=== PATIENT | male | born 1995 | race Caucasian/White ===

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

== ENCOUNTER 2018-03-05 11:24 | Emergency (ER) | payer OTHER ==
[~2018-03-05] VITALS: Ht 167.6 cm; Wt 63.7 kg
[~2018-03-05 11:24] MED LIST changes: -AMO500 PO; +AMOX500C2 PO; +BACTDS PO; +CEPH-443 PO; +IBUP-1982; -IBUP200C
[2018-03-05 11:26] VITALS: Ht 167.6 cm; Wt 63.7 kg
[2018-03-05] MEDS ORDERED: CEFTRIAXONE 1 GM INJ IM ONE (16:00)
[2018-03-05] MEDS ORDERED: CEPH-443 PO (16:01)
[2018-03-05] MEDS ORDERED: IBUP-1542 PO (16:01)
[2018-03-05] MEDS ORDERED: SULF1TAB31 PO (16:01)
--- NOTE | 2018-03-05 16:24 | ERD ---
ER Documentation Chief Complaint Chief Complaint Complains of left leg / foot pain x 2 days HPI 22-year-old male complaining of left leg pain since this morning. Patient reports waking up with the pain in his left calf and left hamstring area. Able to ambulate, but with slight pain. Patient states that he had a 8-9-hour long drive yesterday. He did stop to 3 times, with 10 minutes break each time. Patient denies any trauma to his legs. Denies shortness of breath. Denies smoking. Denies any past medical history. ROS All systems reviewed and are negative except as per history of present illness. Medications Home Meds Active Scripts Ibuprofen* (Motrin*) 600 Mg Tab, 600 MG PO Q6H PRN for PAIN AND OR ELEVATED TEMP, #30 TAB Prov:JESUS MCKOY. CORN DETASSELER 03/05/18 Sulfamethoxazole/Trimethoprim* (Bactrim Ds* Tablet) 1 Each Tablet, 1 TAB PO BID, #14 TAB Prov:JESUS MCKOY. CORN DETASSELER 03/05/18 Cephalexin* (Keflex*) 500 Mg Capsule, 500 MG PO QID for 7 Days, CAP Prov:JESUS MCKOY. CORN DETASSELER 03/05/18 Sulfamethoxazole-Trimethoprim* (Bactrim* DS) 800-160 Mg Tab, 1 TAB PO BID for 10 Days, #20 TAB Prov:ERICA JIMENEZ PA-C 04/19/16 Cephalexin* (Keflex*) 500 Mg Capsule, 500 MG PO QID for 10 Days, CAP Prov:ERICA JIMENEZ PA-C 04/19/16 Ibuprofen* (Motrin*) 600 Mg Tab, 600 MG PO Q6, #30 TAB Prov:BRIGID JIMENEZILLE PA-C 04/19/16 Ibuprofen* (Motrin*) 600 Mg Tab, 600 MG PO Q8, #30 TAB Prov:MANAGUELOD,ABDI P CORN DETASSELER 09/26/15 Amoxicillin* (Amoxicillin*) 500 Mg Cap, 500 MG PO TID for 7 Days, CAP Prov:MANAGUELOD,ABDI P CORN DETASSELER 09/26/15 Reported Medications Ibuprofen* (Ibuprofen*) 200 Mg Capsule 09/27/09 Allergies Allergies: Coded Allergies: No Known Drug Allergies (Verified Allergy, Mild, 03/05/18) PMhx/Soc History of Surgery: Yes (APPendectomy ) Anesthesia Reaction: No Hx Neurological Disorder: No Hx Respiratory Disorders: No Hx Cardiac Disorders: No Hx Psychiatric Problems: No Hx Miscellaneous Medical Probl: No Hx Alcohol Use: No Hx Substance Use: Yes (OCCASIONAL MARIJUANA) Hx Tobacco Use: No Smoking Status: Never smoker Physical Exam Vitals Vital Signs Date Temp Pulse Resp B/P (MAP) Pulse Ox O2 O2 Flow FiO2 Time Delivery Rate 03/05/18 98.8 80 18 116/67 99 Room Air 14:17 (83) 03/05/18 100.1 13:37 03/05/18 100.9 92 20 130/72 100 11:26 (91) Physical Exam General: Well-developed, well-nourished, conscious and coherent, in no distress Skin: Warm and dry without rash, good texture and turgor Head: Normocephalic without evidence of trauma Chest: Normal AP diameter. Good expansion without retractions. Nontender. Lungs are clear to auscultate bilaterally with good tidal volume Heart: Regular rate and rhythm. No murmur, rub, or gallops heard Extremities: A 1 cm size healing scab noted on the medial left calf, with a 3-4 cm skin erythema proximal to the scalp. Left calf is tender to palpation. Tenderness also noted in the posterior left knee, and posterior left thigh. Full range of motion. Good strength bilaterally. No ecchymosis or edema. Peripheral pulses are intact. Sensation intact Neuro: Alert and oriented 4, GCS 15. Psych: Normal mood and affect Result Diagram: 03/05/18 1438 03/05/18 1438 Results 24 hrs Laboratory Tests Test 03/05/18 14:38 White Blood Count 9.6 10^3/ul Red Blood Count 5.26 10^6/ul Hemoglobin 15.9 g/dl Hematocrit 46.2 % Mean Corpuscular Volume 87.8 fl Mean Corpuscular Hemoglobin 30.2 pg Mean Corpuscular Hemoglobin Concent 34.4 g/dl Red Cell Distribution Width 12.3 % Platelet Count 179 10^3/UL Mean Platelet Volume 10.4 fl Immature Granulocytes % 0.400 % Neutrophils % 82.7 % Lymphocytes % 7.5 % Monocytes % 9.0 % Eosinophils % 0.1 % Basophils % 0.3 % Nucleated Red Blood Cells % 0.0 /100WBC Immature Granulocytes # 0.040 10^3/ul Neutrophils # 7.9 10^3/ul Lymphocytes # 0.7 10^3/ul Monocytes # 0.9 10^3/ul Eosinophils # 0.0 10^3/ul Basophils # 0.0 10^3/ul Nucleated Red Blood Cells # 0.0 10^3/ul D-Dimer < 220.00 ng/ml D-Dimer Comment Sodium Level 136 mmol/L Potassium Level 4.3 mmol/L Chloride Level 100 mmol/L Carbon Dioxide Level 25 mmol/L Anion Gap 11 Blood Urea Nitrogen 12 mg/dl Creatinine 0.78 mg/dl Est Glomerular Filtrat Rate mL/min > 60 mL/min Glucose Level 114 mg/dl Calcium Level 9.9 mg/dl Total Bilirubin 0.7 mg/dl Direct Bilirubin 0.00 mg/dl Indirect Bilirubin 0.7 mg/dl Aspartate Amino Transf (AST/SGOT) 25 IU/L Alanine Aminotransferase (ALT/SGPT) 22 IU/L Alkaline Phosphatase 61 IU/L Total Protein 8.1 g/dl Albumin 4.9 g/dl Globulin 3.20 g/dl Albumin/Globulin Ratio 1.53 Current Medications Medications Dose Sig/Tamar Start Time Status Last (Trade) Ordered Route PRN Stop Time Admin Dose Reason Admin Ceftriaxone 1 gm ONCE ONCE 03/05/18 DC 03/05/18 Sodium IM 16:00 16:07 (Rocephin) 03/05/18 16:01 Procedures/MDM Well-appearing 22-year-old male presents the ED with left leg pain since this morning. Because of his prolonged sitting yesterday from his long drive. Doppler ultrasound of the left lower extremity was obtained to rule out DVT. Doppler ultrasound is negative for DVT. After the ultrasound, patient reports feeling lightheaded and short of breath. He also reports slight chest pain. EKG, CBC, CMP, and d-dimer was obtained. CBC: no e/o of systemic infection or severe anemia CMP: no e/o severe acidosis, alkalosis, renal failure, diabetic ketoacidosis, liver disease D-dimer: Negative EKG: Rate/Rhythm: Normal Sinus Rhythm, rate 77 bpm QRS, ST, T-waves: No changes consistent w/ acute ischemia [place]: Right axis Impression: No evidence of ischemia or arrhythmia After resting for some time, patient reports feeling much better. Patient has low risk factors for pulmonary embolism, with d-dimer negative. I doubt that he has PE. I suspect that his shortness of breath and chest pain may be due to anxiety, which resolved after resting become more calm. As for his leg pain, the area of erythema proximal to the scalp make me suspicious for possible cellulitis. There is no sign of sepsis or necrotizing fasciitis. Patient given Rocephin IM in the ED. Bactrim DS and Keflex also prescribed for patient. Patient advised to return to ED in 2 days for recheck. Patient appears well, stable for discharge and outpatient management. Medical decision making shared with patient and family. Education provided to patient and family. Patient and family expressed understanding of the plan. Medications on discharge: Ibuprofen, Bactrim DS, Keflex. Follow-up: Primary care provider in 2-3 days or return to ED if worse. Disclaimer: Inadvertent spelling and grammatical errors are likely due to EHR/dictation software use and do not reflect on the overall quality of patient care. Also, please note that the electronic time recorded on this note does not necessarily reflect the actual time of the patient encounter. Departure Diagnosis: Primary Impression: Left leg pain Additional Impression: Cellulitis Site of cellulitis: extremity Site of cellulitis of extremity: lower extremity Laterality: left Qualified Codes: L03.116 - Cellulitis of left lower limb Condition: Stable Patient Instructions: Cellulitis Additional Instructions: Return to this facility in 2 DAYS for a follow-up exam.Return sooner if your condition worsens. JESUS MCKOY NP Mar 05, 2018 16:20
[2018-03-05 16:27] VITALS: BP 100/65; PULSE 81; RESP 18
== END 2018-03-05 16:28 | disposition home or self-care (01) ==
LOC: FTE 11:24
DX: M79.605 Pain in left leg (principal); L03.116 Cellulitis of left lower limb; R40.2412 Glasgow coma scale score 13-15, at arrival to emergency department
CPT/HCPCS: 80053; 85025; 85378; 93005; 93971; 96372; J0696; Z7502

== ENCOUNTER 2018-03-06 22:37 | Emergency (ER) | payer OTHER ==
[~2018-03-06] VITALS: Ht 172.7 cm; Wt 63.0 kg
[~2018-03-06 22:37] MED LIST changes: +SULF1TAB31 PO
[2018-03-06 22:48] VITALS: BP 124/67; PULSE 83; RESP 16; Ht 172.7 cm; Wt 63.0 kg
[2018-03-07] MEDS ORDERED: CLIN300C10 PO (00:26)
[2018-03-07] MEDS ORDERED: CLINDAMYCIN 600 MG INJ IM ONE (00:30)
[2018-03-07] MEDS ORDERED: CLINDAMYCIN 900 MG INJ IM ONE ×2 (01:00)
--- NOTE | 2018-03-07 07:30 | ERD ---
ER Documentation Chief Complaint Chief Complaint LEFT LOWER LEG REDNESS WITH ULCERATION/RADIAITING PAIN HPI 22-year-old male presents for left lower leg erythema with ulceration. Patient was in the ER here yesterday for the same symptoms and was given antibiotics Bactrim and Keflex however he states that the red area appears to be spreading upwards to his left thigh. Denies fevers or chills. Denies chest pain or shortness of breath. No other complaints. ROS All systems reviewed and are negative except as per history of present illness. Medications Home Meds Active Scripts Clindamycin Hcl* (Clindamycin Hcl*) 300 Mg Capsule, 300 MG PO QID for skin infection for 7 Days, #28 CAP Prov:CHARLINE RAMON DO 03/07/18 Ibuprofen* (Motrin*) 600 Mg Tab, 600 MG PO Q6H PRN for PAIN AND OR ELEVATED TEMP, #30 TAB Prov:JESUS MCKOY. DRIER OPERATOR HELPER 03/05/18 Sulfamethoxazole/Trimethoprim* (Bactrim Ds* Tablet) 1 Each Tablet, 1 TAB PO BID, #14 TAB Prov:JESUS MCKOY. DRIER OPERATOR HELPER 03/05/18 Cephalexin* (Keflex*) 500 Mg Capsule, 500 MG PO QID for 7 Days, CAP Prov:JESUS MCKOY. DRIER OPERATOR HELPER 03/05/18 Sulfamethoxazole-Trimethoprim* (Bactrim* DS) 800-160 Mg Tab, 1 TAB PO BID for 10 Days, #20 TAB Prov:ERICA JIMENEZ PA-C 04/19/16 Cephalexin* (Keflex*) 500 Mg Capsule, 500 MG PO QID for 10 Days, CAP Prov:BRIGID JIMENEZILLE PA-C 04/19/16 Ibuprofen* (Motrin*) 600 Mg Tab, 600 MG PO Q6, #30 TAB Prov:BARBARAMATTSSILLE PA-C 04/19/16 Ibuprofen* (Motrin*) 600 Mg Tab, 600 MG PO Q8, #30 TAB Prov:MANAGUELOD,ABDI P DRIER OPERATOR HELPER 09/26/15 Amoxicillin* (Amoxicillin*) 500 Mg Cap, 500 MG PO TID for 7 Days, CAP Prov:MANAGUELOD,ABDI P DRIER OPERATOR HELPER 09/26/15 Reported Medications Ibuprofen* (Ibuprofen*) 200 Mg Capsule 09/27/09 Allergies Allergies: Coded Allergies: No Known Drug Allergies (Verified Allergy, Mild, 03/05/18) PMhx/Soc History of Surgery: Yes (APPendectomy ) Anesthesia Reaction: No Hx Neurological Disorder: No Hx Respiratory Disorders: No Hx Cardiac Disorders: No Hx Psychiatric Problems: No Hx Miscellaneous Medical Probl: No Hx Alcohol Use: No Hx Substance Use: Yes (OCCASIONAL MARIJUANA) Hx Tobacco Use: No Physical Exam Vitals Vital Signs Date Temp Pulse Resp B/P (MAP) Pulse Ox O2 O2 Flow FiO2 Time Delivery Rate 03/06/18 97.3 83 16 124/67 98 22:48 (86) Physical Exam Const: No acute distress Resp: Clear to auscultation bilaterally Cardio: Regular rate and rhythm, no murmurs Abd: Soft, non tender, non distended. Normal bowel sounds Skin: Left calf ulceration about 3 cm with an erythematous streak to his left thigh. Back: No midline or flank tenderness Ext: No cyanosis, or edema, bilateral upper and lower extremity muscle strength 5 out of 5 Neur: Awake and alert, bilateral upper and lower extremity sensation intact Psych: Normal Mood and Affect Results 24 hrs Current Medications Medications Dose Sig/Tamar Start Time Status Last (Trade) Ordered Route PRN Stop Time Admin Dose Reason Admin Clindamycin 600 mg ONCE ONCE 03/07/18 Cancel Phosphate IM 00:30 (Cleocin) 03/07/18 00:31 Clindamycin 600 mg ONCE ONCE 03/07/18 Cancel Phosphate IM 01:00 (Cleocin) 03/07/18 01:01 Clindamycin 600 mg ONCE ONCE 03/07/18 DC 03/07/18 Phosphate IM 01:00 00:48 (Cleocin) 03/07/18 01:01 Procedures/MDM Medical Decision Making: Differential diagnosis includes but not limited to cellulitis, lymphangitis, contact dermatitis Patient appeared well on physical exam. Left calf examination shows a 3 cm ulceration with an erythematous streak running upwards to the patient's thigh. Physical examination most consistent with a cellulitis with associated lymphangitis. Patient had already been given Keflex and Bactrim on the previous visit to ER. Patient was given a shot of Cleocin. Patient advised to discontinue using Bactrim and was given a prescription for clindamycin. Advised to continue with the Keflex. Patient advised to follow up with PCP in 1-2 days. Patient advised to return to ED for new or worsening symptoms. Patient stable on discharge from the ED. Disclaimer: Inadvertent spelling and grammatical errors are likely due to EHR/dictation software use and do not reflect on the overall quality of patient care. Also, please note that the electronic time recorded on this note does not necessarily reflect the actual time of the patient encounter. Departure Diagnosis: Primary Impression: Cellulitis Additional Impression: Lymphangitis Condition: Fair Patient Instructions: Cellulitis, Lymphangitis Referrals: [facility] YOU HAVE RECEIVED A MEDICAL SCREENING EXAM AND THE RESULTS INDICATE THAT YOU DO NOT HAVE A CONDITION THAT REQUIRES URGENT TREATMENT IN THE EMERGENCY DEPARTMENT. FURTHER EVALUATION AND TREATMENT OF YOUR CONDITION CAN WAIT UNTIL YOU ARE SEEN IN YOUR DOCTORS OFFICE WITHIN THE NEXT 1-2 DAYS. IT IS YOUR RESPONSIBILITY TO MAKE AN APPOINTMENT FOR FOLOW-UP CARE. IF YOU HAVE A PRIMARY DOCTOR --you should call your primary doctor and schedule an appointment IF YOU DO NOT HAVE A PRIMARY DOCTOR YOU CAN CALL OUR PHYSICIAN REFERRAL HOTLINE AT IF YOU CAN NOT AFFORD TO SEE A PHYSICIAN YOU CAN CHOSE FROM THE FOLLOWING [facility] CL[facility] [address] [facility] [address] [facility] [facility] [address] [facility] [address] [facility] [address] [facility] [facility]. [address] Additional Instructions: Call your primary care doctor TOMORROW for an appointment during the next 1-2 days.See the doctor sooner or return here if your condition worsens before your appointment time. stop keflex, continue bactrim prescribed previously start clindamycin CHARLINE RAMON DO Mar 07, 2018 07:30
== END 2018-03-07 01:03 | disposition home or self-care (01) ==
LOC: FTE 22:37
DX: I89.1 Lymphangitis (principal)
CPT/HCPCS: 96372; S0077; Z7502

== ENCOUNTER 2018-08-15 17:53 | Emergency (ER) | payer MEDICAID, OTHER ==
[~2018-08-15] VITALS: Ht 172.7 cm; Wt 65.8 kg
[~2018-08-15 17:53] MED LIST changes: +CLIN300C10 PO
[2018-08-15 18:32] VITALS: BP 131/78; PULSE 68; RESP 16; Ht 172.7 cm; Wt 65.8 kg
[2018-08-15] MEDS ORDERED: [UNRECOGNIZED DRUG - CODE] PO (20:30)
[2018-08-15] MEDS ORDERED: AMOX1TAB10 PO (20:30)
--- NOTE | 2018-08-15 20:32 | ERD ---
ER Documentation Chief Complaint Chief Complaint HEARING LOSS TO RIGHT EAR X'S 1 WEEK HPI 23-year-old male presented to ED for hearing loss and pain in his right ear. Patient states he was driving home from [place] and he felt his ears pop and some drainage has had pain since patient denies any allergies to medication. Patient states he is not currently taking any medications. ROS All systems reviewed and are negative except as per history of present illness. Medications Home Meds Active Scripts Pseudoephedrine Hcl (12 Hour Decongestant) 120 Mg Tablet.sa, 120 MG PO ONCE for 7 Days Prov:SUNITA LAW PA-C 08/15/18 Amoxicillin/Potassium Clav (Amox-Clav 875-125 mg Tablet) 875-125 mg Tab, 1 TAB PO BID for 10 Days, #20 TAB Prov:SUNITA LAW PA-C 08/15/18 Clindamycin Hcl* (Clindamycin Hcl*) 300 Mg Capsule, 300 MG PO QID for skin infection for 7 Days, #28 CAP Prov:CHARLINE RAMON DO 03/07/18 Ibuprofen* (Motrin*) 600 Mg Tab, 600 MG PO Q6H PRN for PAIN AND OR ELEVATED TEMP, #30 TAB Prov:JESUS MCKOY. MINING HELPER 03/05/18 Sulfamethoxazole/Trimethoprim* (Bactrim Ds* Tablet) 1 Each Tablet, 1 TAB PO BID, #14 TAB Prov:JESUS MCKOY. MINING HELPER 03/05/18 Cephalexin* (Keflex*) 500 Mg Capsule, 500 MG PO QID for 7 Days, CAP Prov:JESUS CMKOY. MINING HELPER 03/05/18 Sulfamethoxazole-Trimethoprim* (Bactrim* DS) 800-160 Mg Tab, 1 TAB PO BID for 10 Days, #20 TAB Prov:ERICA JIMENEZC 04/19/16 Cephalexin* (Keflex*) 500 Mg Capsule, 500 MG PO QID for 10 Days, CAP Prov:ERICA JIMENEZ-C 04/19/16 Ibuprofen* (Motrin*) 600 Mg Tab, 600 MG PO Q6, #30 TAB Prov:ERICA JIMENEZ-C 04/19/16 Ibuprofen* (Motrin*) 600 Mg Tab, 600 MG PO Q8, #30 TAB Prov:ABDI VENTURA MINING HELPER 09/26/15 Amoxicillin* (Amoxicillin*) 500 Mg Cap, 500 MG PO TID for 7 Days, CAP Prov:ABDI VENTURA P MINING HELPER 09/26/15 Reported Medications Ibuprofen* (Ibuprofen*) 200 Mg Capsule 09/27/09 Allergies Allergies: Coded Allergies: No Known Drug Allergies (Verified Allergy, Mild, 03/05/18) PMhx/Soc History of Surgery: Yes (APPendectomy ) Anesthesia Reaction: No Hx Neurological Disorder: No Hx Respiratory Disorders: No Hx Cardiac Disorders: No Hx Psychiatric Problems: No Hx Miscellaneous Medical Probl: No Hx Alcohol Use: No Hx Substance Use: Yes (OCCASIONAL MARIJUANA) Hx Tobacco Use: No Smoking Status: Never smoker FmHx Family History: No diabetes, No coronary disease, No other Physical Exam Vitals Vital Signs Date Temp Pulse Resp B/P (MAP) Pulse Ox O2 O2 Flow FiO2 Time Delivery Rate 08/15/18 98.6 68 16 131/78 100 18:32 (95) Physical Exam Const: No acute distress Head: Atraumatic Eyes: Normal Conjunctiva ENT: Ruptured right tympanic membrane Neck: Full range of motion. No meningismus. Resp: Clear to auscultation bilaterally Cardio: Regular rate and rhythm, no murmurs Neur: Awake and alert Psych: Normal Mood and Affect Procedures/MDM Medical decision makin-year-old male presented to ED for right ear pain. Patient states he was driving home from the [place] when he felt his ear pop and noticed drainage from his ear. Patient states he still has pain in the ear. Physical exam revealed a ruptured tympanic membrane in the right ear. Patient is afebrile and denies fever chills cough runny nose headache, no pain palpation to the mastoid. The patient is going to be treated outpatient with Augmentin and Sudafed with instructions to follow-up in 10 days. Patient was advised to not go on any water until he has his follow-up appointment. Patient was advised if symptoms w orsen return to ER immediately. At this time I have low suspicion of low suspicion for , mastoiditis, biotic barotrauma, TMJ dysfunction, cellulitis. Patient had no further questions upon discharge and is in agreement to the treatment plan. Prescription for home: Augmentin Sudafed Discharge: At this time, patient is stable for discharge and outpatient management. I have instructed the patient to follow-up with his\her primary care physician in 1 to 2 days. I have discussed with the patient the possibility of needing to see a specialist for further work-up and imaging studies if symptoms persist. I have instructed the patient to promptly return to the ER for any new or worsening symptoms including increased pain, fever, nausea, vomiting, weakness or LOC. The patient and\or family expressed understanding of and agreement with this plan. All questions were answered. Home care instructions were provided. Disclaimer: Inadvertent spelling and grammatical errors are likely due to EHR\dictation software use and do not reflect on the overall quality of patient care. Also, please note that the electronic time recorded on the note does not necessarily reflect the actual time of the patient encounter. Departure Diagnosis: Primary Impression: Rupture of tympanic membrane Laterality: right Qualified Codes: H72.91 - Unspecified perforation of tympanic membrane, right ear Condition: Stable Patient Instructions: Ruptured Tm, Infected (Adult) Referrals: [facility] YOU HAVE RECEIVED A MEDICAL SCREENING EXAM AND THE RESULTS INDICATE THAT YOU DO NOT HAVE A CONDITION THAT REQUIRES URGENT TREATMENT IN THE EMERGENCY DEPARTMENT. FURTHER EVALUATION AND TREATMENT OF YOUR CONDITION CAN WAIT UNTIL YOU ARE SEEN IN YOUR DOCTORS OFFICE WITHIN THE NEXT 1-2 DAYS. IT IS YOUR RESPONSIBILITY TO MAKE AN APPOINTMENT FOR FOLOW-UP CARE. IF YOU HAVE A PRIMARY DOCTOR --you should call your primary doctor and schedule an appointment IF YOU DO NOT HAVE A PRIMARY DOCTOR YOU CAN CALL OUR PHYSICIAN REFERRAL HOTLINE AT IF YOU CAN NOT AFFORD TO SEE A PHYSICIAN YOU CAN CHOSE FROM THE FOLLOWING [facility] [address] [facility]. [facility] [address] [facility] [address] [facility]. [facility] [address] [facility]. [facility] [address] [facility]. [facility]. [address] [facility]. [facility] YOU HAVE RECEIVED A MEDICAL SCREENING EXAM AND THE RESULTS INDICATE THAT YOU DO NOT HAVE A CONDITION THAT REQUIRES URGENT TREATMENT IN THE EMERGENCY DEPARTMENT. FURTHER EVALUATION AND TREATMENT OF YOUR CONDITION CAN WAIT UNTIL YOU ARE SEEN IN YOUR DOCTORS OFFICE WITHIN THE NEXT 1-2 DAYS. IT IS YOUR RESPONSIBILITY TO MAKE AN APPOINTMENT FOR FOLOW-UP CARE. IF YOU HAVE A PRIMARY DOCTOR --you should call your primary doctor and schedule and appointment IF YOU DO NOT HAVE A PRIMARY DOCTOR YOU CAN CALL OUR PHYSICIAN REFERRAL HOTLINE AT . IF YOU CAN NOT AFFORD TO SEE A PHYSICIAN YOU CAN CHOSE FROM THE FOLLOWING [facility] INSTITUTIONS[facility] [address] [place] [address] [facility] [address] [place] [address] [facility] [address] [place] [address] Additional Instructions: Call your primary care doctor TOMORROW for an appointment during the next 1-2 days.See the doctor sooner or return here if your condition worsens before your appointment time. Do not go in water until your follow-up appointment and ensure that the membrane is back intact SUNITA LAW PA-C Aug 15, 2018 20:32
== END 2018-08-15 21:37 | disposition home or self-care (01) ==
LOC: FTE 17:53
DX: H72.91 Unspecified perforation of tympanic membrane, right ear (principal)
CPT/HCPCS: 99282